=== PATIENT | male | born 1985 | race Two or more races ===

== ENCOUNTER 2023-03-02 14:44 | Emergency (ER) | payer SELFPAY ==
[2023-03-02 17:56] LABS: BASOPHILS PERCENT AUTO 0.6 % (0.0-1.5); EOSINOPHILS ABSOLUTE AUTO 0.4 K/uL (0.0-0.7); EOSINOPHILS PERCENT AUTO 4.9 % (0.0-7.0); HEMATOCRIT 44.3 % (38.0-50.0); HEMOGLOBIN 15.3 g/dL (13.0-17.0); LYMPHOCYTES ABSOLUTE AUTO 2.2 K/uL (0.6-2.4); LYMPHOCYTES PERCENT AUTO 30.2 % (16.0-40.0); MEAN CORPUSCULAR HEMOGLOBIN 30.1 pg (27.0-32.0); MEAN CORPUSCULAR HGB CONC 34.5 g/dL (31.0-37.0); MONOCYTES ABSOLUTE AUTO 0.5 K/uL (0.0-0.8); MONOCYTES PERCENT AUTO 6.3 % (0.0-15.0); NEUTROPHILS ABSOLUTE AUTO 4.2 K/uL (1.4-5.7); NRBC ABSOLUTE 0 K/uL; PLATELET COUNT,PLT 381 K/uL (150-400); RED BLOOD CELL COUNT 5.09 M/uL (4.50-5.90); WHITE BLOOD CELL COUNT,WBC 7.19 K/uL (4.0-11.0)
[2023-03-02 18:34] LABS: A/G RATIO 1.1 (0.9-1.6); BILIRUBIN TOTAL 0.5 mg/dL (0.2-1.0); CALCIUM 8.4 mg/dL (8.5-10.1); CARBON DIOXIDE,CO2 25.5 mmol/L (21.0-32.0); CREATININE 1.3 mg/dL (0.8-1.3); EST CRCL DRUG DOSING (CG) 75.27 mL/min; PROTEIN TOTAL,TP 7.8 g/dL (6.4-8.2)
== END 2023-03-02 19:34 | disposition home or self-care (01) ==
LOC: MW.ED 14:44
DX: R07.89 Other chest pain (principal)
CPT/HCPCS: 36415; 71046; 71046-26; 80053; 83690; 83735; 84484; 85025; 93005; 93010; 99282; 99285